=== PATIENT | female | born 1980 | race Caucasian/White ===

== ENCOUNTER 2019-11-25 09:04 | Outpatient (CLI) | payer OTHER ==
--- NOTE | 2019-11-25 09:25 | MMO ---
Bilateral MAMMO Bilat Screen [facility]. CLINICAL HISTORY: Patient is 39 years old and is seen for screening. VIEWS: The views performed were: bilateral craniocaudal with tomosynthesis and bilateral mediolateral oblique with tomosynthesis. This study has been interpreted with the assistance of computer-aided detection. MAMMOGRAM FINDINGS: There are scattered fibroglandular densities. Benign calcifications are noted bilaterally. There are no suspicious masses, suspicious calcifications, or new areas of architectural distortion. IMPRESSION: THERE IS NO MAMMOGRAPHIC EVIDENCE OF MALIGNANCY. AGE APPROPRIATE SCREENING BASED ON RISK FACTORS IS RECOMMENDED. THE RESULTS OF THIS EXAM WERE SENT TO THE PATIENT. ACR BI-RADS Category 2 - Benign finding MAMMOGRAPHY NOTE: 1. A negative mammogram report should not delay a biopsy if a dominant of clinically suspicious mass is present. 2. Approximately 10% to 15% of breast cancers are not detected by mammography. 3. Adenosis and dense breasts may obscure an underlying neoplasm. Reported by: ALEX KOCH MD Electonically Signed: [id number]
== END 2019-11-25 09:05 | disposition home or self-care (01) ==
LOC: BICMAMMO 09:04
PROVIDERS: ATTEND Family Medicine
DX: Z12.31 Encounter for screening mammogram for malignant neoplasm of breast (principal)
CPT/HCPCS: 77063; 77067

== ENCOUNTER 2020-12-06 14:52 | Outpatient (CLI) | payer BC | END 2020-12-06 14:53 | disposition home or self-care (01) | LOC: BICMAMMO 14:52 | PROVIDERS: ATTEND Family Medicine | DX: Z12.31 Encounter for screening mammogram for malignant neoplasm of breast (principal); Z80.3 Family history of malignant neoplasm of breast | CPT/HCPCS: 77063; 77067 ==

== ENCOUNTER 2021-01-26 13:01 | Outpatient (CLI) | payer BC ==
[2021-01-27 18:41] LABS: SARS-CoV-2 PCR by NAA Not Detected (NotDetected)
== END 2021-01-26 13:02 | disposition home or self-care (01) ==
LOC: LABBT 13:01
PROVIDERS: ATTEND Internal Medicine
DX: Z01.812 Encounter for preprocedural laboratory examination (principal); R10.12 Left upper quadrant pain; Z20.822 Contact with and (suspected) exposure to COVID-19
CPT/HCPCS: U0003; U0005

== ENCOUNTER 2021-01-31 07:22 | Day surgery (SDC) | payer BC ==
[2021-01-30 15:01] VITALS: BMI 55.9
[2021-01-31] MEDS ORDERED: Fentanyl 100 MCG/2 ML VIAL ONE (08:37)
[2021-01-31] MEDS ORDERED: PROPOFOL 200 MG/20 ML VIAL ONE (08:42)
[2021-01-31] MEDS ORDERED: Lidocaine 1% PF 5 ML VIAL ONE (08:42)
[2021-01-31] MEDS ORDERED: Iopamidol-370 76% 500 ML 1 ML ONE (11:03)
[2021-01-31] MEDS ORDERED: Iopamidol 370 76% 50 ML VIAL FS ONE (11:03)
== END 2021-01-31 12:20 | disposition home or self-care (01) ==
LOC: SDC 07:22
PROVIDERS: ATTEND Internal Medicine
PROC: 0DJ08ZZ Inspection of Upper Intestinal Tract, Via Natural or Artificial Opening Endoscopic (ICD-10-PCS; principal; 2021-01-31)
DX: R10.12 Left upper quadrant pain (principal); R11.2 Nausea with vomiting, unspecified; K76.0 Fatty (change of) liver, not elsewhere classified; E03.9 Hypothyroidism, unspecified; Z79.84 Long term (current) use of oral hypoglycemic drugs; Z79.899 Other long term (current) drug therapy
CPT/HCPCS: 36415; 74177; 82565; J2704; J3010; Q9967

== ENCOUNTER 2022-02-12 12:30 | Outpatient (CLI) | payer BC | END 2022-02-12 12:31 | disposition home or self-care (01) | LOC: BICMAMMO 12:30 | PROVIDERS: ATTEND Family Medicine | DX: Z12.31 Encounter for screening mammogram for malignant neoplasm of breast (principal); Z80.3 Family history of malignant neoplasm of breast | CPT/HCPCS: 77063; 77067 ==

== ENCOUNTER 2022-04-18 11:53 | Outpatient (CLI) | payer BC | END 2022-04-18 11:54 | disposition home or self-care (01) | LOC: BICRAD 11:53 | PROVIDERS: ATTEND Family Medicine | DX: R07.89 Other chest pain (principal) ==

== ENCOUNTER 2022-04-25 08:59 | Outpatient (CLI) | payer BC | END 2022-04-25 09:00 | disposition home or self-care (01) | LOC: BICCT 08:59 | PROVIDERS: ATTEND Family Medicine | DX: R07.89 Other chest pain (principal); M89.9 Disorder of bone, unspecified; R91.1 Solitary pulmonary nodule | CPT/HCPCS: 71250 ==

== ENCOUNTER 2022-05-07 08:37 | Outpatient (CLI) | payer BC ==
[~2022-05-07 08:37] MED LIST: Iopamidol-370 76% 500 ML 1 ML ONE
== END 2022-05-07 08:38 | disposition home or self-care (01) ==
LOC: BICCT 08:37
PROVIDERS: ATTEND Family Medicine
DX: M89.9 Disorder of bone, unspecified (principal)
CPT/HCPCS: 74177

== ENCOUNTER 2023-03-14 16:08 | Outpatient (CLI) | payer BC | END 2023-03-14 16:09 | disposition home or self-care (01) | LOC: BICCT 16:08 | PROVIDERS: ATTEND Internal Medicine | DX: R91.1 Solitary pulmonary nodule (principal) | CPT/HCPCS: 71250 ==